=== PATIENT | male | born 1985 | race Caucasian/White ===

== ENCOUNTER 2017-03-29 16:35 | Inpatient (IN) | payer OTHER, SELFPAY ==
--- NOTE | 2017-03-29 18:31 | C.PDOC ---
History Of Present Illness 32 y/o male with past medical history of schizophrenia, not currently on any medications, and c/o feeling agitated, reports he is seeing things. Patient states when he gets agitated, he feels like he wants to hurt himself. Denies suicidal ideation. Also states when he gets like this, he gets palpitations. Denies fever, chills, chest pain, SOB, nausea, vomiting, or other associated symptoms. Time Seen by Provider: 03/29/17 17:47 Chief Complaint (Nursing): Psychiatric Evaluation History Per: Patient History/Exam Limitations: no limitations Current Symptoms Are (Timing): Still Present Suicide/Self Injury Attempted (Context): None Associated Symptoms: Agitation. denies: Suicidal Thoughts Recent travel outside of the [place]: No Past Medical History Reviewed: Historical Data, Nursing Documentation, Vital Signs Vital Signs: Last Vital Signs Temp 98.4 F 03/29/17 19:53 Pulse 77 03/29/17 19:53 Resp 18 03/29/17 19:53 BP 138/83 03/29/17 19:53 Pulse Ox 95 03/29/17 20:15 - Medical History PMH: Anxiety, Bipolar Disorder, Depression, Hypercholesterolemia, Schizophrenia - [facility] Procedures OTHER GROUP THERAPY (11/05/13) Family History: States: Unknown Family Hx - Social History Hx Tobacco Use: No Hx Alcohol Use: No Hx Substance Use: No - Immunization History Hx Tetanus Toxoid Vaccination: No Hx Influenza Vaccination: No Hx Pneumococcal Vaccination: No Review Of Systems Except As Marked, All Systems Reviewed And Found Negative. Constitutional: Negative for: Fever, Chills Cardiovascular: Negative for: Chest Pain Respiratory: Negative for: Cough, Shortness of Breath, Wheezing Gastrointestinal: Negative for: Vomiting Skin: Negative for: Rash Neurological: Negative for: Headache, Dizziness Physical Exam - Physical Exam Appears: Non-toxic, No Acute Distress Skin: Normal Color, Warm, Dry Head: Atraumatic, Normacephalic Oral Mucosa: Moist Chest: Symmetrical Cardiovascular: Rhythm Regular Respiratory: Normal Breath Sounds, No Rales, No Rhonchi, No Wheezing Gastrointestinal/Abdominal: Normal Exam, Soft, No Tenderness, No Guarding, No Rebound Back: Normal Inspection Extremity: Normal ROM, Capillary Refill (< 2 sec.) Neurological/Psych: Oriented x3, Normal Speech, Normal Cognition ED Course And Treatment - Laboratory Results Result Diagrams: 03/29/17 19:36 03/29/17 19:36 Lab Interpretation: No Acute Changes ECG: Interpreted By Me ECG Rhythm: Sinus Rhythm ECG Interpretation: No Acute Changes O2 Sat by Pulse Oximetry: 95 (RA) Pulse Ox Interpretation: Normal Progress Note: EKG, bloodwork ordered. Crisis eval. Reevaluation Time: 20:15 Reassessment Condition: Unchanged (Patient is medically cleared for psychiatric admission.) Disposition - Disposition Disposition: HOSPITALIZED Disposition Time: 21:18 Condition: STABLE - POA Present On Arrival: None - Clinical Impression Clinical Impression: Schizophrenia - Scribe Statement The provider has reviewed the documentation as recorded by the Scribe SM All medical record entries made by the Scribe were at my direction and personally dictated by me. I have reviewed the chart and agree that the record accurately reflects my personal performance of the history, physical exam, medical decision making, and the department course for this patient. I have also personally directed, reviewed, and agree with the discharge instructions and disposition.
[2017-03-29 19:39] LABS: BASO # 0.2 K/uL (0.0-0.2); BASO % 1.3 % (0.0-2.0); EOS % 7.8 % (0.0-4.0); LYMPH # 3.9 K/uL (1.0-4.3); LYMPH % 30.5 % (20.0-40.0); MEAN CELL VOLUME 83.9 fL (80.0-94.0); MEAN CORPUSCULAR HEMOGLOBIN 28.3 pg (27.0-31.0); MEAN CORPUSCULAR HGB CONC 33.7 g/dL (33.0-37.0); MEAN PLATELET VOLUME 7.6 fL (7.2-11.7); MONO # 0.7 K/uL (0.0-0.8); MONO % 5.4 % (0.0-10.0); RED CELL DISTRIBUTION WIDTH 14.1 % (11.5-14.5); WHITE BLOOD COUNT 12.9 K/uL (4.8-10.8)
[2017-03-29 19:47] LABS: RBC URINE 2 /hpf (0-3); URINE BACTERIA RARE (<OCC); URINE BILIRUBIN NEGATIVE (NEGATIVE); URINE BLOOD NEGATIVE (NEGATIVE); URINE COLOR Yellow (YELLOW); URINE GLUCOSE (UA) NORMAL (Normal); URINE KETONE TRACE mg/dL (NEGATIVE); URINE LEUKOCYTE ESTERASE NEG Leu/uL (Negative); URINE PROTEIN NEGATIVE (NEGATIVE); URINE UROBILINOGEN NORMAL mg/dL (0.2-1.0); WBC URINE 5 /hpf (0-5)
[2017-03-29 19:51] LABS: ALCOHOL SERUM < 10 mg/dl (0-10); ALKALINE PHOSPHATASE 90 U/L (38-126); ALT/SGPT 56 U/L (21-72); AST/SGOT 30 U/L (17-59); BILIRUBIN,TOTAL 0.4 mg/dL (0.2-1.3); BLOOD UREA NITROGEN 17 mg/dL (9-20); CALCIUM 8.8 mg/dl (8.6-10.4); CARBON DIOXIDE 25 mmol/L (22-30); CHLORIDE 102 mmol/L (98-107); GFR AFRICAN-AMERICAN > 60; GLUCOSE,RANDOM 93 mg/dL (75-110); SODIUM 139 mmol/L (132-148); TOTAL PROTEIN 8.8 g/dL (6.3-8.3)
--- NOTE | 2017-03-29 22:13 | PCM.BM ---
<Evette Rouse - Last Filed: 03/29/17 22:12> Treatment Plan Problems - Problems identified on initial assessmt Auditory Hallucinations Date Initiated: 03/29/17 Time Initiated: 22:12 Assessment reference: NA Status: Active Treatment assets and liabiliti Patient Assests: cooperative, self-reliant, ADL independent Patient Liabilities: live alone, financial problems - Milieu Protocol Maintain good personal hygiene: daily Encourage regular showers, daily Remind patient to perform daily oral care Conduct patient checks and document Observation sheet: Q15 minutes Maintain personal safety: every shift Educate patient to report safety concerns to staff, every shift Monitor environment for contraband/sharps Medication safety: Monitor for expected outcome, potential side effects: every shift, Assess barriers to learning: every shift, Assess readiness for medication education: every shift <Karlos Lyman - Last Filed: 03/31/17 10:25> - Diagnosis (1) Schizoaffective disorder, chronic condition with acute exacerbation Status: Acute Interventions: 03/31/17 10:25 * Assess/adjust medications daily and /or as needed * See patient on an individual basis 7x/week to assess status of hallucinations * Discuss risks, benefits, side effects and alternatives of medications * <Brooke Becerra - Last Filed: 03/31/17 11:26> Family Contact Family involvement: Family/SO is involved Family contact: Patient declines to allow family contact at present - Goals for Treatment Patient goals for treatment: "I want to feel better." Discharge/Continuing Care - Education Needs Education Needs: Patient Medication, Patient Coping Skills - Discharge Discharge Criteria: Tolerates medication w/o severe side effects, Reduction of target symptoms Discharge to:: Home - Treatment Team Participation Discussed with Family/SO: No Was Patient/Family/SO present at Treatment Team Meeting: Yes
--- NOTE | 2017-03-30 09:41 | PCM.PSYCH ---
Initial Psychiatric Evaluation - Initial Psychiatric Evaluation Type of Admission: Voluntary Legal Status: Capacity Chief Complaint (in patient's own words): "I'm tired" History of Present Illness and Precipitating Events: The pt is seen, chart reviewed, case discussed with staff Pt is a 32 y/o male with a history schizophrenia presents to the ED for anxiety and "racing thoughts." As per ED notes, Patient reported "seeing people on the street and in my brain seeing them again and again". Patient reported current symptoms for the past 2 weeks. Patient was unable to identify any precipitating factors at the time of interview. Patient stated 'I can't control my mind or relax. Patient reported compliance with current medications. Patient is prescribed Depakote 500 mg, Prozac 40mg and 20 mg, Ambien 10mg, Clonazepam and Olanzepine 10mg. Patient reported previous diagnosis of Schizophrenia. Patient reported history of mental illness in the maternal family of origin. Patient denied any history of alcohol or substance abuse in the maternal or paternal family of origin. Pt reports that he lives with his in an apartment in [place]. 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 Pt appears disorganized and disheveled. Pt reports that he does have visual hallucinations. Pt reports of feeling depressed and appeared paranoid. Pt stated that he did not sleep. Pt reports that his appetite is normal. Pt reports that he smokes 5 to 6 cigarettes a week. Pt denies alcohol and illicit drug use. Pt has a flat affect and soft speech pattern. Pt was observed to be pacing the hallways. Throughout the interview the pt occasionally repeated that the "problema es psicologia." Past MHX: Cholesterol Family Psych: denies Family Substance Abuse: denies Current Medications: Active Medications Generic Name Dose Route Start Last Admin Trade Name Freq PRN Reason Stop Dose Admin Benztropine Mesylate 1 mg 03/30/17 10:00 Cogentin PO BID CORBY Home Med 5 mg 03/30/17 10:00 Olanzapine [Olanzapine Odt] PO BID CORBY Hydroxyzine HCl 50 mg 03/29/17 22:42 03/29/17 22:49 Atarax PO 50 mg Q6H PRN Administration Anxiety Trazodone HCl 100 mg 03/29/17 22:45 03/29/17 22:49 Desyrel PO 100 mg HS CORBY Administration Past Psychiatric History - Past Psychiatric History Previous Treatment History: Inpatient Pertinent Medical Hx (Current Medical&Sleep Prob, Allergies): Allergies Allergy/AdvReac Type Severity Reaction Status Date / Time No Known Allergies Allergy Verified 04/07/14 10:17 Clonazepam [Klonopin] 1 mg PO DAILY 03/29/17 Divalproex [Depakote ER] 500 mg PO BID 03/29/17 Olanzapine [Olanzapine Odt] 10 mg PO DAILY 03/29/17 Zolpidem [Ambien] 10 mg PO DAILY 03/29/17 Review of Systems - Review of Systems All systems: reviewed and no additional remarkable complaints except - Psychiatric Psychiatric: Abnormal Sleep Pattern, Behavioral Changes, Depression, Difficulty Concentrating, Hopelessness, Paranoia, Visual Hallucinations Mental Status Examination - Personal Presentation Personal Presentation: Looks stated age - Affect Affect: Flat - Motor Activity Motor Activity: Calm - Reliability in Providing Information Reliability in Providing Information: Poor, due to alteration in thoughts - Speech Speech: Disorganized - Mood Mood: Depressed, Anxious - Formal Thought Process Formal Thought Process: Hallucinations, Delusions, Paranoia, Loosening of associations, Flight of ideas, Circumstantial - Hallucinations/Delusions Hallucinations: Visual Delusions: Persecution - Obsessions/Compulsions Obsessions: No Compulsions: No - Cognitive Functions Orientation: Person, Place, Situation, Time Sensorium: Alert Attention/Concentration: Attentive Abstract Thinking: [place] Estimate of Intelligence: Below average Judgement: Imparied, as evidence by: Poor judgement, Imparied, as evidence by: Lack of insight into illness Memory: Remote intact, as evidenced by: Ability to recall historical events - Risk Risk: Diminished functioning DSM 5 DX - DSM 5 DSM 5 Diagnosis: Schizoaffective disorder bipolar type - Recommended/Plan of Treatment Treatment Recommendations and Plan of Treatment: Schizoaffective disorder bipolar type CBT Psychoeducation Supportive therapy, group therapy, individual therapy Olanzapine 5 g by mouth twice a day Cogentin 1 mg PO BID Trazodone 50 mg by mouth daily at bedtime - Smoking Cessation Smoking Cessation Initiated: No
[2017-03-30] MEDS ORDERED: OLANZAPINE 5 MG PO SCH (10:00)
--- NOTE | 2017-03-31 10:25 | PCM.PYCHPN ---
Psychiatric Progress Note - Psychiatric Progress Note Patient seen today, length of contact: 16 min Patient Chief Complaint: "I'm feeling little better" Problems Identified/Issues Discussed: Patient seen and evaluated, chart reviewed and discussed with the nurse. Patient remained disorganized and internally preoccupied. He still reports of seeing shadows. Patient still appears paranoid and delusional. He reports depressed and anxious mood and feelings of hopelessness and helplessness and at times racing of thoughts. Patient remained isolated, confined and withdrawn. He is taking medication and denies any side effects. Supportive therapy and psychoeducation were given. Medication Change: Yes (Increase olanzapine) Medical Record Reviewed: Yes Mental Status Examination - Cognitive Function Orientation: Person, Place, Situation, Time Memory: Intact Attention: Poor Concentration: Poor Association: Loose Fund of Knowledge: Poor - Mood Mood: Depressed, Anxious - Affect Affect: Flat - Speech Speech: Soft - Formal Thought Process Formal Thought Process: Hallucinations, Delusions, Paranoia - Suicidal Ideation Suicidal Ideation: No - Homicidal Ideation Homicidal Ideation: No Goal/Treatment Plan - Goal/Treatment Plan Need for Continued Stay: Severe depression anxiety, Severe functional impairment Progress Toward Problem(s) and Goals/Treatment Plan: Schizoaffective disorder bipolar type CBT Psychoeducation Supportive therapy, group therapy, individual therapy Olanzapine 5 mg by mouth daily Olanzapine 10 mg by mouth daily Cogentin 1 mg PO BID Trazodone 50 mg by mouth daily at bedtime
--- NOTE | 2017-04-01 09:27 | PCM.PYCHPN ---
Psychiatric Progress Note - Psychiatric Progress Note Patient seen today, length of contact: 15 min Patient Chief Complaint: "I'm feeling sad" Problems Identified/Issues Discussed: Patient seen and evaluated, chart reviewed and discussed with the nurse. Staff reports that pt still appears paranoid and delusional. He remained disorganized and internally preoccupied. He still reports of seeing shadows. He reports depressed and anxious mood and feelings of hopelessness and helplessness and at times racing of thoughts. Patient remained isolated, confined and withdrawn. He is taking medication and denies any side effects. He needs more time to stabilize. Supportive therapy and psychoeducation were given. Medication Change: Yes (start zoloft) Medical Record Reviewed: Yes Mental Status Examination - Cognitive Function Orientation: Person, Place, Situation, Time Memory: Intact Attention: Poor Concentration: Poor Association: Loose Fund of Knowledge: Poor - Mood Mood: Depressed, Anxious - Affect Affect: Flat - Formal Thought Process Formal Thought Process: Hallucinations, Delusions, Paranoia, Loosening of associations - Suicidal Ideation Suicidal Ideation: No - Homicidal Ideation Homicidal Ideation: No Goal/Treatment Plan - Goal/Treatment Plan Need for Continued Stay: Severe depression anxiety, Severe functional impairment Progress Toward Problem(s) and Goals/Treatment Plan: Schizoaffective disorder bipolar type CBT Psychoeducation Supportive therapy, group therapy, individual therapy Olanzapine 5 mg by mouth daily Olanzapine 10 mg by mouth daily Zoloft 25 mg PO Daily Cogentin 1 mg PO BID Trazodone 50 mg by mouth daily at bedtime - Smoking Cessation Smoking Cessation Initiated: No
--- NOTE | 2017-04-02 22:21 | PCM.PYCHPN ---
Psychiatric Progress Note - Psychiatric Progress Note Patient seen today, length of contact: 15 minute Patient Chief Complaint: My sleep is disturbed due to voices. Voices are less in intensity but they are still there. Problems Identified/Issues Discussed: Patient seen, chart reviewed, case discussed with the staff. Issues related to illness and treatment were discussed with the patient and staff. Reported compliant with treatment with no adverse effects. Reported his sleep is disturbed because of auditory hallucinations. Voices are less than before but still present. We will increase the dose of trazodone to 150 mg at bedtime. Aftercare discussed with the patient. Patient was awake, alert and oriented 3. Denied any delusions, auditory or visual hallucinations, suicidal ideations or homicidal ideations at the time of evaluation.. Medical Problems: None reported Diagnostic Results: Reviewed DSM 5 Symptoms Update: Improving with treatment Medication Change: No Medical Record Reviewed: Yes Mental Status Examination - Cognitive Function Orientation: Person, Place, Situation, Time Memory: Intact Attention: WNL Concentration: WNL Association: WN Fund of Knowledge: [facility] Decription of patient's judgement and insights: Fair - Mood Mood: Anxious - Affect Affect: Blunted - Speech Speech: Appropriate - Formal Thought Process Formal Thought Process: Hallucinations - Suicidal Ideation Suicidal Ideation: No - Homicidal Ideation Homicidal Ideation: No Goal/Treatment Plan - Goal/Treatment Plan Need for Continued Stay: Remain at risks for inpatient hospitalization, Discharge may exacerbated symptoms, Severe functional impairment Progress Toward Problem(s) and Goals/Treatment Plan: Patient education Supportive therapy Dose of trazodone increased to 150 mg Continue rest of the treatment as before Patient will go to [facility] ([facility] for follow-up care after discharge from the hospital. Estimated Date of D/C: 04/05/17 - Smoking Cessation Smoking Cessation Initiated: No
--- NOTE | 2017-04-03 02:57 | CARD ---
APPROVED REPORT EKG Measurement Heart [id number] <Conclusion> Normal sinus rhythm Possible Inferior infarct, age undetermined Abnormal ECG
[2017-04-03] MEDS: Divalproex 250 mg DR Tab PO SCH ×2 (09:49→17:17)
--- NOTE | 2017-04-03 11:09 | PCM.PYCHPN ---
Psychiatric Progress Note - Psychiatric Progress Note Patient seen today, length of contact: 15 minute Patient Chief Complaint: "I still have a racing mind" Problems Identified/Issues Discussed: Patient seen and evaluated, chart reviewed and discussed with the nurse. Pt appears flat with a soft speech pattern. He participates In groups. He reports that he is feeling better. Pt states that his mind is still racing and he is still pacing the hallways. Pt reports that he had minimal sleep last night. He reports that his appetite is good and he had breakfast. Pt reports that he has a little depression but denies feelings of hopelessness. Pt reports minimal feelings of anxiety. He denies feelings of paranoia. He denies auditory and visual hallucinations. Pt denies suicidal and homicidal ideations. He is taking medication and denies any side effects. He needs more time to stabilize. Supportive therapy and psychoeducation were given. Medication Change: No Medical Record Reviewed: Yes Mental Status Examination - Cognitive Function Orientation: Person, Place, Situation, Time Memory: Intact Attention: WNL Concentration: WNL Association: WNL Fund of Knowledge: WNL - Mood Mood: Anxious - Affect Affect: Blunted - Speech Speech: Appropriate - Formal Thought Process Formal Thought Process: Hallucinations - Suicidal Ideation Suicidal Ideation: No - Homicidal Ideation Homicidal Ideation: No Goal/Treatment Plan - Goal/Treatment Plan Need for Continued Stay: Remain at risks for inpatient hospitalization, Discharge may exacerbated symptoms, Severe functional impairment Progress Toward Problem(s) and Goals/Treatment Plan: Schizoaffective disorder bipolar type CBT Psychoeducation Supportive therapy, group therapy, individual therapy Olanzapine 5 mg by mouth daily Olanzapine 10 mg by mouth daily Zoloft 25 mg PO Daily Cogentin 1 mg PO BID Trazodone 50 mg by mouth daily at bedtime Estimated Date of D/C: 04/05/17
[2017-04-04 07:41] VITALS: RESP 20; TEMP 98.6; O2SAT 95
[2017-04-04] MEDS: Divalproex 250 mg DR Tab PO SCH ×2 (09:51→17:08)
--- NOTE | 2017-04-04 09:58 | PCM.PYCHPN ---
Psychiatric Progress Note - Psychiatric Progress Note Patient seen today, length of contact: 16 minute Patient Chief Complaint: "I'm feeling better doctor" Problems Identified/Issues Discussed: Patient seen and evaluated, chart reviewed and discussed with the nurse. Pt appears slightly disheveled. Pt stated that he does not like to participate in groups because of the language barrier. He reports that he is feeling better. Pt states that his mind is still racing and he is still pacing the hallways. Pt reports that he had 7 hours of sleep last night. He reports that his appetite is good and he had breakfast. Pt denies feelings of depression and hopelessness. Pt denies feelings of anxiety. He denies feelings of paranoia. He denies auditory hallucinations. Pt reports that he recently has visual hallucinations of "blood on the wall" occasionally. Pt denies suicidal and homicidal ideations. He is taking medication and denies any side effects. He needs more time to stabilize. Supportive therapy and psychoeducation were given. Medication Change: No Medical Record Reviewed: Yes Mental Status Examination - Cognitive Function Orientation: Person, Place, Situation, Time Memory: Intact Attention: WNL Concentration: WNL Association: WN Fund of Knowledge: WNL - Mood Mood: Other (appropriate ) - Affect Affect: Blunted - Speech Speech: Appropriate - Formal Thought Process Formal Thought Process: Hallucinations - Suicidal Ideation Suicidal Ideation: No - Homicidal Ideation Homicidal Ideation: No Goal/Treatment Plan - Goal/Treatment Plan Need for Continued Stay: Remain at risks for inpatient hospitalization, Discharge may exacerbated symptoms, Severe functional impairment Progress Toward Problem(s) and Goals/Treatment Plan: Schizoaffective disorder bipolar type CBT Psychoeducation Supportive therapy, group therapy, individual therapy Olanzapine 5 mg by mouth daily Olanzapine 10 mg by mouth daily Zoloft 25 mg PO Daily Cogentin 1 mg PO BID Trazodone 50 mg by mouth daily at bedtime Estimated Date of D/C: 04/05/17
[2017-04-04 15:56] VITALS: BP 113/63; PULSE 95
[2017-04-05] MEDS ORDERED: Divalproex 250 mg DR Tab PO SCH (10:00)
--- NOTE | 2017-04-05 10:41 | PCM.PYCHDC ---
Mental Status Examination - Mental Status Examination Orientation: Person, Place Memory: Intact Mood: Neutral Affect: Constricted Speech: Soft Attention: WNL Concentration: WNL Association: WNL Fund of Knowledge: WNL Formal Thought Process: No Impairment Description of patient's judgement and insight: good, fair Psychotic Thoughts and Behaviors: denies any AVH Suicidal Ideation: No Current Homicidal Ideation?: No Discharge Summary - Discharge Note Reason for Hospitalization: The pt is seen, chart reviewed, case discussed with staff Pt is a 32 y/o male with a history schizophrenia presents to the ED for anxiety and "racing thoughts." As per ED notes, Patient reported "seeing people on the street and in my brain seeing them again and again". Patient reported current symptoms for the past 2 weeks. Patient was unable to identify any precipitating factors at the time of interview. Patient stated 'I can't control my mind or relax. Patient reported compliance with current medications. Patient is prescribed Depakote 500 mg, Prozac 40mg and 20 mg, Ambien 10mg, Clonazepam and Olanzepine 10mg. Patient reported previous diagnosis of Schizophrenia. Patient reported history of mental illness in the maternal family of origin. Patient denied any history of alcohol or substance abuse in the maternal or paternal family of origin. Pt reports that he lives with his in an apartment in [place]. 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 Pt appears disorganized and disheveled. Pt reports that he does have visual hallucinations. Pt reports of feeling depressed and appeared paranoid. Pt stated that he did not sleep. Pt reports that his appetite is normal. Pt reports that he smokes 5 to 6 cigarettes a week. Pt denies alcohol and illicit drug use. Pt has a flat affect and soft speech pattern. Pt was observed to be pacing the hallways. Throughout the interview the pt occasionally repeated that the "problema es psicologia." Consultations:: List each consultation separately and include: 1. Reason for request. 2. Findings. 3. Follow-up Summary of Hospital Course include:: 1. Description of specific treatment plan utilized for patients during their course of treatmen. 2. Summarize the time- course for resolution of acute symptoms and/or regressed behaviors. 3. Describe issues identified and worked on during hospitalization. 4. Describe medication utilized. 5. Describe medical problems identified and treated. 6. Reassessment of suicide risk Summary of Hospital Course: During the course of his stay, patient (pt) started progressively improving and he no longer remained irritable, depressed, and psychotic. His mood and paranoia were improved and he started attending groups and meetings and started socializing. Patient denied any feelings of hopelessness, helplessness, and worthlessness, denied any problem with the sleep or appetite, denied suicidal ideation or homicidal ideation. Pt denied any auditory or visual hallucinations. Some changes were made in his current medications and patient was discharged on following medications. He tolerated these medications very well and denied any side effects. Pt is to return [facility]. - Diagnosis (1) Schizoaffective disorder, chronic condition with acute exacerbation Status: Acute - Final Diagnosis (DSM 5) Condition upon Discharge: STABLE DSM 5: Schizoaffective disorder bipolar type Disposition: HOME/ ROUTINE Follow-up Treatment Plan: Education: Pt was educated and counseled about the risks and benefits of taking and not taking medications. Pt was educated and counseled about the risks of drinking and abusing drugs. Pt was educated and counseled to go to the ER or call 911 if pt develop suicidal ideation or homicidal ideation, worsening of symptoms or severe side effects of the meds. Prescriptions/Medication Reconciliation: Benztropine [Cogentin] 1 mg PO BID #60 tab Divalproex [Depakote DR] 500 mg PO HS #30 tcp OLANZapine [Zyprexa] 10 mg PO BID #60 tab Sertraline [Zoloft] 25 mg PO DAILY #30 tab traZODone [Desyrel] 100 mg PO HS #60 tab - Smoking Cessation Smoking Cessation Medication prescribed: No - Antipsychotic Medications Pt discharged on 2 or more routine antipsychotic medications: No
[2017-04-05] MEDS ORDERED: Divalproex 500 mg DR Tab PO SCH (22:00)
== END 2017-04-05 11:45 | disposition home or self-care (01) | DRG 430 ==
LOC: C.ER 16:35 → C.5E 21:18
PROVIDERS: ADMIT Psychiatry & Neurology Psychiatry; ATTEND Psychiatry & Neurology Psychiatry
PROC: GZHZZZZ Group Psychotherapy (ICD-10-PCS; principal; 2017-03-29)
PROC: GZ56ZZZ Individual Psychotherapy, Supportive (ICD-10-PCS; 2017-03-29)
DX: F25.0 Schizoaffective disorder, bipolar type (principal); F22 Delusional disorders; F17.210 Nicotine dependence, cigarettes, uncomplicated; F41.9 Anxiety disorder, unspecified; Z79.899 Other long term (current) drug therapy

== ENCOUNTER 2018-01-18 20:03 | Inpatient (IN) | payer MEDICAID, OTHER ==
[2018-01-18 20:03] VITALS: BMI 44.9
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
[2018-01-18 20:37] LABS: BASO # 0.1 K/uL (0.0-0.2); BASO % 0.9 % (0.0-2.0); EOS # 0.9 K/uL (0.0-0.7); EOS % 8.3 % (0.0-4.0); HEMOGLOBIN 12.6 g/dL (12.0-18.0); LYMPH # 3.7 K/uL (1.0-4.3); LYMPH % 33.6 % (20.0-40.0); MEAN CELL VOLUME 82.9 fL (80.0-94.0); MEAN CORPUSCULAR HEMOGLOBIN 29.2 pg (27.0-31.0); MEAN CORPUSCULAR HGB CONC 35.2 g/dL (33.0-37.0); MEAN PLATELET VOLUME 7.8 fL (7.2-11.7); MONO # 0.6 K/uL (0.0-0.8); MONO % 5.1 % (0.0-10.0); NEUT # 5.7 K/uL (1.8-7.0); NEUT % 52.1 % (50.0-75.0); NRBC % 0.2 % (0.0-2.0); RBC 4.34 Mil/uL (4.40-5.90); RED CELL DISTRIBUTION WIDTH 14.5 % (11.5-14.5); WHITE BLOOD COUNT 10.9 K/uL (4.8-10.8)
[2018-01-18 20:42] LABS: SQUAMOUS EPITHIAL 1 /hpf (0-5); URINE BILIRUBIN NEGATIVE (NEGATIVE); URINE BLOOD NEGATIVE (NEGATIVE); URINE CLARITY Clear (Clear); URINE COLOR Yellow (YELLOW); URINE GLUCOSE (UA) NORMAL (Normal); URINE LEUKOCYTE ESTERASE NEG Leu/uL (Negative); URINE PROTEIN NEGATIVE (NEGATIVE); URINE UROBILINOGEN NORMAL mg/dL (0.2-1.0)
[2018-01-18 20:49] LABS: ALB/GLOB RATIO 1.4 (1.0-2.1); ALT/SGPT 31 U/L (21-72); AST/SGOT 17 U/L (17-59); BLOOD UREA NITROGEN 13 mg/dL (9-20); CALCIUM 9.2 mg/dl (8.6-10.4); GFR NON-AFRICAN AMERICAN > 60
[2018-01-18 20:57] LABS: BARBITURATES, UR NEGATIVE (NEGATIVE); BENZODIAZEPINES, UR NEGATIVE (NEGATIVE); OPIATES, UR NEGATIVE (NEGATIVE); PHENCYCLIDINE, UR NEGATIVE (NEGATIVE)
--- NOTE | 2018-01-19 00:10 | PCM.BM ---
<Flavio Delgadillo - Last Filed: 01/19/18 00:10> Treatment Plan Problems - Problems identified on initial assessmt ANXIETY Date Initiated: 01/18/18 Time Initiated: 23:35 Assessment reference: NA Status: Active VISUAL/ AUDITORY HALLUCINATION Date Initiated: 01/18/18 Time Initiated: 23:35 Assessment reference: NA Status: Active Treatment assets and liabiliti Patient Assests: cooperative, resourceful, self-reliant, ADL independent, negotiates basic needs Patient Liabilities: financial problems, poor support system, relationship conflicts, dietary restrictions, medical problems, language/speech - Milieu Protocol Maintain good personal hygiene: daily Encourage regular showers, daily Remind patient to perform daily oral care, daily Assist patient to perform ADL's Maintain personal safety: every shift Educate patient to report safety concerns to staff, every shift Monitor environment for contraband/sharps Medication safety: Monitor for expected outcome, potential side effects: every shift, Assess barriers to learning: every shift, Assess readiness for medication education: every shift <Karlos Lyman - Last Filed: 01/22/18 11:28> - Diagnosis (1) Schizoaffective disorder Status: Acute Interventions: 01/22/18 11:29 * Assess/adjust medications daily and /or as needed * See patient on an individual basis 7x/week to assess status of hallucinations * Discuss risks, benefits, side effects and alternatives of medications * <Brooke Becerra - Last Filed: 01/22/18 13:30> Family Contact Family involvement: Famliy/SO not involved - Goals for Treatment Patient goals for treatment: "I want a new outpatient program." Discharge/Continuing Care - Education Needs Education Needs: Patient Medication, Patient Coping Skills, Patient Placement options, Patient Community resources - Discharge Discharge Criteria: Tolerates medication w/o severe side effects, Reduction of target symptoms Discharge to:: Home - Treatment Team Participation Discussed with Family/SO: No Was Patient/Family/SO present at Treatment Team Meeting: Yes
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
[2018-01-20] MEDS ORDERED: Pneumococcal 23-Valent Vaccine IM ONE (10:00)
[2018-01-20] MEDS ORDERED: Influenza Vaccine 60 MCG/0.5 ML SYR (3 yr & up) IM ONE (10:30)
--- NOTE | 2018-01-21 21:31 | PCM.PYCHPN ---
Psychiatric Progress Note - Psychiatric Progress Note Patient seen today, length of contact: 15 minutes Patient Chief Complaint: I am feeling better but still have sleeping problem. I do not hear any voices but see something at times. Problems Identified/Issues Discussed: Patient seen, chart reviewed, case discussed with the staff. Issues related to illness and treatment were discussed with the patient and staff. Reported compliant with treatment with no adverse affects. Tolerating treatment very well. Patient reported feeling little better with the treatment. Calm and cooperative. Awake, alert and oriented 3. No psychomotor activity, good eye contact, memory intact. Aftercare discussed with the patient. Denied any delusions, auditory or visual hallucinations, suicidal ideations or homicidal ideations at the time of evaluation. Diagnostic Results: Reviewed DSM 5 Symptoms Update: Improving with treatment Medication Change: No Medical Record Reviewed: Yes Mental Status Examination - Cognitive Function Orientation: Person, Place, Situation, Time Memory: Intact Attention: WNL Concentration: WNL Association: WNL Fund of Knowledge: [facility] Decription of patient's judgement and insights: Fair - Mood Mood: Depressed (Less than before) - Affect Affect: Depressed - Speech Speech: Appropriate - Formal Thought Process Formal Thought Process: Paranoia - Suicidal Ideation Suicidal Ideation: No - Homicidal Ideation Homicidal Ideation: No Goal/Treatment Plan - Goal/Treatment Plan Need for Continued Stay: Remain at risks for inpatient hospitalization, Discharge may exacerbated symptoms, Severe functional impairment Progress Toward Problem(s) and Goals/Treatment Plan: Patient education. Supportive therapy. Continue treatment as before. Estimated Date of D/C: 01/24/18
--- NOTE | 2018-01-22 11:28 | PCM.PYCHPN ---
Psychiatric Progress Note - Psychiatric Progress Note Patient seen today, length of contact: 16 min Patient Chief Complaint: "I still see people" Problems Identified/Issues Discussed: The patient is seen, chart reviewed, case discussed with staff. Patient states that he feels good now but he still complains about visual hallucinations at nights. He reports feeling irritable and not being able to sleep in the last two nights. The patient is compliant with medications and reports no side-effects. Symptoms are improving but needs more time to stabilize. Patient attends groups and activities. Support given, psycho-education provided. After care discussed. Medication Change: Yes Medical Record Reviewed: Yes Mental Status Examination - Cognitive Function Orientation: Person, Place, Situation, Time Memory: Intact Attention: WNL Concentration: Poor Association: Loose Fund of Knowledge: Poor - Mood Mood: Depressed, Anxious - Affect Affect: Constricted, Depressed - Speech Speech: Soft - Formal Thought Process Formal Thought Process: Hallucinations, Delusions, Paranoia, Loosening of associations - Suicidal Ideation Suicidal Ideation: No - Homicidal Ideation Homicidal Ideation: No Goal/Treatment Plan - Goal/Treatment Plan Need for Continued Stay: Severe depression anxiety, Severe functional impairment Progress Toward Problem(s) and Goals/Treatment Plan: Schizophrenia paranoid type continuous -CBT -Psychotherapy -supportive therapy, group therapy, individual therapy -Atarax 25 mg PO Q6 prn -Klonopin 0.5 mg O BID -Cogentin 1 mg PO BID -Prolixin 10 mg PO BID -Trazodone 150 mg PO QHS prn
[2018-01-23] MEDS: Divalproex 250 mg DR Tab PO SCH ×2 (09:52→17:40)
--- NOTE | 2018-01-23 10:19 | PCM.PYCHPN ---
Psychiatric Progress Note - Psychiatric Progress Note Patient seen today, length of contact: 16 min Patient Chief Complaint: "I still see people" Problems Identified/Issues Discussed: The patient is seen, chart reviewed, case discussed with staff. Patient states that he feels good now but he still complains about visual hallucinations at nights. He still appears more organized and internally preoccupied. He reports feeling irritable and not being able to sleep in the last two nights. The patient is compliant with medications and reports no side-effects. Symptoms are improving but needs more time to stabilize. Patient attends groups and activities. Support given, psycho-education provided. After care discussed. Medication Change: Yes Medical Record Reviewed: Yes Mental Status Examination - Cognitive Function Orientation: Person, Place, Situation, Time Memory: Intact Attention: WNL Concentration: Poor Association: Loose Fund of Knowledge: Poor - Mood Mood: Depressed, Anxious - Affect Affect: Constricted, Depressed - Speech Speech: Soft - Formal Thought Process Formal Thought Process: Hallucinations, Delusions, Paranoia, Loosening of associations - Suicidal Ideation Suicidal Ideation: No - Homicidal Ideation Homicidal Ideation: No Goal/Treatment Plan - Goal/Treatment Plan Need for Continued Stay: Severe depression anxiety, Severe functional impairment Progress Toward Problem(s) and Goals/Treatment Plan: Schizophrenia paranoid type continuous -CBT -Psychotherapy -supportive therapy, group therapy, individual therapy -Atarax 25 mg PO Q6 prn -Klonopin 0.5 mg O BID -Cogentin 1 mg PO BID -Prolixin 10 mg PO BID -Trazodone 150 mg PO QHS prn
[2018-01-24] MEDS: Divalproex 250 mg DR Tab PO SCH ×2 (09:01→17:04)
[2018-01-24] MEDS ORDERED: Bacitracin Ointment 30 GM TUBE TOP PRN (13:25)
--- NOTE | 2018-01-25 00:30 | PCM.PYCHPN ---
Psychiatric Progress Note - Psychiatric Progress Note Patient seen today, length of contact: 16 min Patient Chief Complaint: "I still see people" Problems Identified/Issues Discussed: The patient is seen, chart reviewed, case discussed with staff. Patient states that he feels good now but he still complains about visual hallucinations at nights. He reports feeling irritable and not being able to sleep in the last two nights. He still appears more organized and internally preoccupied. The patient is compliant with medications and reports no side-effects. Symptoms are improving but needs more time to stabilize. Patient attends groups and activities. Support given, psycho-education provided. After care discussed. Medication Change: Yes Medical Record Reviewed: Yes Mental Status Examination - Cognitive Function Orientation: Person, Place, Situation, Time Memory: Intact Attention: WNL Concentration: Poor Association: Loose Fund of Knowledge: Poor - Mood Mood: Depressed, Anxious - Affect Affect: Constricted, Depressed - Speech Speech: Soft - Formal Thought Process Formal Thought Process: Hallucinations, Delusions, Paranoia, Loosening of associations - Suicidal Ideation Suicidal Ideation: No - Homicidal Ideation Homicidal Ideation: No Goal/Treatment Plan - Goal/Treatment Plan Need for Continued Stay: Severe depression anxiety, Severe functional impairment Progress Toward Problem(s) and Goals/Treatment Plan: Schizophrenia paranoid type continuous -CBT -Psychotherapy -supportive therapy, group therapy, individual therapy -Atarax 25 mg PO Q6 prn -Klonopin 0.5 mg O BID -Cogentin 1 mg PO BID -Prolixin 10 mg PO BID -Trazodone 150 mg PO QHS prn
[2018-01-25 07:00] VITALS: O2SAT 98
[2018-01-25] MEDS: Divalproex 250 mg DR Tab PO SCH ×2 (10:43→17:53)
--- NOTE | 2018-01-25 10:51 | PCM.PYCHPN ---
Psychiatric Progress Note - Psychiatric Progress Note Patient seen today, length of contact: 16 min Patient Chief Complaint: "I still see people" Problems Identified/Issues Discussed: Patient seen and evaluated, chart reviewed and discussed with the nurse. Pt reports depressed mood, and he remained disorganized and internally preoccupied. He remained isolated and withdrawn, and confined to his room. Patient states that he feels little better but he still complains about visual hallucinations at nights. He reports feeling irritable and not being able to sleep in the last two nights. The patient is compliant with medications and reports no side-effects. Symptoms are improving but needs more time to stabilize. Patient attends groups and activities. Support given, psycho-education provided. After care discussed. Medication Change: Yes Medical Record Reviewed: Yes Mental Status Examination - Cognitive Function Orientation: Person, Place, Situation, Time Memory: Intact Attention: WNL Concentration: Poor Association: Loose Fund of Knowledge: Poor - Mood Mood: Depressed, Anxious - Affect Affect: Constricted, Depressed - Speech Speech: Soft - Formal Thought Process Formal Thought Process: Hallucinations, Delusions, Paranoia, Loosening of associations - Suicidal Ideation Suicidal Ideation: No - Homicidal Ideation Homicidal Ideation: No Goal/Treatment Plan - Goal/Treatment Plan Need for Continued Stay: Severe depression anxiety, Severe functional impairment Progress Toward Problem(s) and Goals/Treatment Plan: Schizophrenia paranoid type continuous -CBT -Psychotherapy -supportive therapy, group therapy, individual therapy -Atarax for anxiety -Klonopin for anxiety -Cogentin for side effects -Prolixin for psychosis -Trazodone for sleep -Depakote for mood - Smoking Cessation Smoking Cessation Initiated: No
[2018-01-26] MEDS: Divalproex 250 mg DR Tab PO SCH ×2 (09:05→17:23)
--- NOTE | 2018-01-26 10:13 | PCM.PYCHPN ---
Psychiatric Progress Note - Psychiatric Progress Note Patient seen today, length of contact: 16 min Patient Chief Complaint: "I still see people" Problems Identified/Issues Discussed: Patient seen and evaluated, chart reviewed and discussed with the nurse. Pt reports improvement in the depressed mood, and he reports improvement in the paranoia. He remained isolated and withdrawn, and confined to his room. Patient states that he feels little better but he still complains of anxiety. He reports feeling irritable and not being able to sleep in the last two nights. The patient is compliant with medications and reports no side-effects. Symptoms are improving but needs more time to stabilize. Support given, psycho-education provided. After care discussed. Medication Change: Yes Medical Record Reviewed: Yes Mental Status Examination - Cognitive Function Orientation: Person, Place, Situation, Time Memory: Intact Attention: WNL Concentration: Poor Association: Loose Fund of Knowledge: Poor - Mood Mood: Depressed, Anxious - Affect Affect: Constricted, Depressed - Speech Speech: Soft - Formal Thought Process Formal Thought Process: Hallucinations, Delusions, Paranoia, Loosening of associations - Suicidal Ideation Suicidal Ideation: No - Homicidal Ideation Homicidal Ideation: No Goal/Treatment Plan - Goal/Treatment Plan Need for Continued Stay: Severe depression anxiety, Severe functional impairment Progress Toward Problem(s) and Goals/Treatment Plan: Schizophrenia paranoid type continuous -CBT -Psychotherapy -supportive therapy, group therapy, individual therapy -Atarax for anxiety -Klonopin for anxiety -Cogentin for side effects -Prolixin for psychosis -Trazodone for sleep -Depakote for mood
[2018-01-27] MEDS: Divalproex 250 mg DR Tab PO SCH ×2 (09:01→17:20)
[2018-01-28] MEDS: Divalproex 250 mg DR Tab PO SCH ×2 (09:22→17:05)
[2018-01-29 06:49] VITALS: BP 110/72; PULSE 82; RESP 20; TEMP 98.4
[2018-01-29] MEDS: Divalproex 250 mg DR Tab PO SCH (09:52)
--- NOTE | 2018-01-29 10:01 | PCM.BM ---
Treatment Plan Problems - Problems identified on initial assessmt ANXIETY Date Initiated: 01/18/18 Time Initiated: 23:35 Assessment reference: NA Status: Active VISUAL/ AUDITORY HALLUCINATION Date Initiated: 01/18/18 Time Initiated: 23:35 Assessment reference: NA Status: Active Treatment assets and liabiliti Patient Assests: cooperative, resourceful, self-reliant, ADL independent, negotiates basic needs Patient Liabilities: financial problems, poor support system, relationship conflicts, dietary restrictions, medical problems, language/speech - Milieu Protocol Maintain good personal hygiene: daily Encourage regular showers, daily Remind patient to perform daily oral care, daily Assist patient to perform ADL's Maintain personal safety: every shift Educate patient to report safety concerns to staff, every shift Monitor environment for contraband/sharps Medication safety: Monitor for expected outcome, potential side effects: every shift, Assess barriers to learning: every shift, Assess readiness for medication education: every shift Milieu Narrative: Patient education. Supportive therapy. Continue treatment as before. Family Contact Family involvement: Famliy/SO not involved - Goals for Treatment Patient goals for treatment: "I want a new outpatient program." Discharge/Continuing Care - Education Needs Education Needs: Patient Medication, Patient Coping Skills, Patient Placement options, Patient Community resources - Discharge Discharge Criteria: Tolerates medication w/o severe side effects, Reduction of target symptoms Discharge to:: Home - Treatment Team Participation Patient/Family/SO Statement: Patient education. Supportive therapy. Continue treatment as before. Discussed with Family/SO: No Was Patient/Family/SO present at Treatment Team Meeting: Yes Treatment Plan Review - Problem ANXIETY Date Initiated: 01/29/18 Time Initiated: 11:00 Progress toward outcomes: improved VISUAL/ AUDITORY HALLUCINATION Date Initiated: 01/29/18 Time Initiated: 11:00 Progress toward outcomes: resolved - Discharge / Continuing Care Discharge to:: Home Behavioral Health Services: Outpatient therapy Health Needs: Medications/Rx, Alcohol/Drug treatment
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
--- NOTE | 2018-01-30 00:43 | PCM.PYCHPN ---
Psychiatric Progress Note - Psychiatric Progress Note Patient seen today, length of contact: 16 min Patient Chief Complaint: "I m feeling better" Problems Identified/Issues Discussed: Patient seen and evaluated, chart reviewed and discussed with the nurse. Pt reports improvement in the depressed mood, and he reports improvement in the paranoia. He remained isolated and withdrawn, and confined to his room. Patient states that he feels little better but he still complains of anxiety. He reports feeling irritable and not being able to sleep in the last two nights. The patient is compliant with medications and reports no side-effects. Symptoms are improving but needs more time to stabilize. Support given, psycho-education provided. After care discussed. Medication Change: Yes Medical Record Reviewed: Yes Mental Status Examination - Cognitive Function Orientation: Person, Place, Situation, Time Memory: Intact Attention: WNL Concentration: WNL Association: WNL Fund of Knowledge: Poor - Mood Mood: Depressed, Anxious - Affect Affect: Constricted, Depressed - Speech Speech: Soft - Formal Thought Process Formal Thought Process: Paranoia, Loosening of associations - Suicidal Ideation Suicidal Ideation: No - Homicidal Ideation Homicidal Ideation: No Goal/Treatment Plan - Goal/Treatment Plan Need for Continued Stay: Severe depression anxiety, Severe functional impairment Progress Toward Problem(s) and Goals/Treatment Plan: Schizophrenia paranoid type continuous -CBT -Psychotherapy -supportive therapy, group therapy, individual therapy -Atarax for anxiety -Klonopin for anxiety -Cogentin for side effects -Prolixin for psychosis -Trazodone for sleep -Depakote for mood Estimated Date of D/C: 02/03/18
== END 2018-01-29 12:38 | disposition home or self-care (01) | DRG 885 ==
LOC: C.ER 20:03 → C.5E 22:23
PROVIDERS: ADMIT Psychiatry & Neurology Psychiatry; ATTEND Psychiatry & Neurology Psychiatry
DX: F20.0 Paranoid schizophrenia (principal); R45.851 Suicidal ideations; F32.9 Major depressive disorder, single episode, unspecified; E78.00 Pure hypercholesterolemia, unspecified; I10 Essential (primary) hypertension; Z56.0 Unemployment, unspecified; Z63.9 Problem related to primary support group, unspecified; Z91.5 Personal history of self-harm

== ENCOUNTER 2018-02-25 16:09 | Emergency (ER) | payer MEDICAID, OTHER ==
[2018-02-25 16:10] VITALS: BMI 44.9
[2018-02-25 16:30] VITALS: BP 152/102; PULSE 68; RESP 18; TEMP 99.2; O2SAT 94
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
[2018-02-25 18:20] LABS: BASO # 0.1 K/uL (0.0-0.2); BASO % 1.1 % (0.0-2.0); EOS # 0.6 K/uL (0.0-0.7); EOS % 5.2 % (0.0-4.0); HEMOGLOBIN 14.2 g/dL (12.0-18.0); LYMPH # 3.5 K/uL (1.0-4.3); LYMPH % 30.2 % (20.0-40.0); MEAN CELL VOLUME 83.4 fL (80.0-94.0); MEAN CORPUSCULAR HEMOGLOBIN 28.5 pg (27.0-31.0); MEAN CORPUSCULAR HGB CONC 34.2 g/dL (33.0-37.0); MEAN PLATELET VOLUME 8.1 fL (7.2-11.7); MONO # 0.7 K/uL (0.0-0.8); MONO % 5.9 % (0.0-10.0); NEUT # 6.7 K/uL (1.8-7.0); NEUT % 57.6 % (50.0-75.0); NRBC % 0.1 % (0.0-2.0); RBC 4.99 Mil/uL (4.40-5.90); RED CELL DISTRIBUTION WIDTH 14.1 % (11.5-14.5); WHITE BLOOD COUNT 11.6 K/uL (4.8-10.8)
[2018-02-25 18:36] LABS: SQUAMOUS EPITHIAL < 1 /hpf (0-5); URINE BILIRUBIN NEGATIVE (NEGATIVE); URINE BLOOD 1+ (NEGATIVE); URINE CLARITY Clear (Clear); URINE COLOR Straw (YELLOW); URINE GLUCOSE (UA) NORMAL (Normal); URINE LEUKOCYTE ESTERASE NEG Leu/uL (Negative); URINE PROTEIN NEGATIVE (NEGATIVE); URINE UROBILINOGEN NORMAL mg/dL (0.2-1.0)
[2018-02-25 18:38] LABS: ALB/GLOB RATIO 1.4 (1.0-2.1); ALBUMIN 4.8 g/dL (3.5-5.0); ALT/SGPT 27 U/L (21-72); AST/SGOT 21 U/L (17-59); BLOOD UREA NITROGEN 12 mg/dL (9-20); GFR NON-AFRICAN AMERICAN > 60
[2018-02-25 18:45] LABS: BARBITURATES, UR NEGATIVE (NEGATIVE); BENZODIAZEPINES, UR NEGATIVE (NEGATIVE); OPIATES, UR NEGATIVE (NEGATIVE); PHENCYCLIDINE, UR NEGATIVE (NEGATIVE)
== END 2018-02-25 19:44 | disposition home or self-care (01) ==
LOC: C.ER 16:09
DX: F25.0 Schizoaffective disorder, bipolar type (principal)

== ENCOUNTER 2018-04-19 14:44 | Emergency (ER) | payer SELFPAY ==
[2018-04-19 14:45] VITALS: BMI 44.9
[2018-04-19 15:09] VITALS: BP 92/55; PULSE 86; RESP 20; TEMP 99; O2SAT 96
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
[2018-04-19 16:24] LABS: BASO # 0.1 K/uL (0.0-0.2); EOS # 0.5 K/uL (0.0-0.7); EOS % 3.7 % (0.0-4.0); LYMPH # 4.5 K/uL (1.0-4.3); LYMPH % 31.4 % (20.0-40.0); MEAN CELL VOLUME 84.3 fL (80.0-94.0); MEAN CORPUSCULAR HEMOGLOBIN 28.2 pg (27.0-31.0); MEAN CORPUSCULAR HGB CONC 33.5 g/dL (33.0-37.0); MEAN PLATELET VOLUME 7.9 fL (7.2-11.7); MONO # 0.8 K/uL (0.0-0.8); MONO % 5.8 % (0.0-10.0); NEUT # 8.3 K/uL (1.8-7.0); NEUT % 58.1 % (50.0-75.0); RBC 4.97 Mil/uL (4.40-5.90); RED CELL DISTRIBUTION WIDTH 13.8 % (11.5-14.5); WHITE BLOOD COUNT 14.3 K/uL (4.8-10.8)
[2018-04-19 16:38] LABS: ALB/GLOB RATIO 1.5 (1.0-2.1); ALBUMIN 4.7 g/dL (3.5-5.0); ALT/SGPT 50 U/L (21-72); AST/SGOT 42 U/L (17-59); BLOOD UREA NITROGEN 14 mg/dL (9-20); CALCIUM 10.2 mg/dl (8.6-10.4); GFR NON-AFRICAN AMERICAN > 60
[2018-04-19 16:55] LABS: SQUAMOUS EPITHIAL 2 /hpf (0-5); URINE BACTERIA RARE (<OCC); URINE BILIRUBIN NEGATIVE (NEGATIVE); URINE BLOOD NEGATIVE (NEGATIVE); URINE CLARITY Clear (Clear); URINE COLOR Yellow (YELLOW); URINE GLUCOSE (UA) NORMAL (Normal); URINE LEUKOCYTE ESTERASE NEG Leu/uL (Negative); URINE PROTEIN NEGATIVE (NEGATIVE); URINE UROBILINOGEN NORMAL mg/dL (0.2-1.0)
[2018-04-19 17:08] LABS: BARBITURATES, UR NEGATIVE (NEGATIVE); BENZODIAZEPINES, UR NEGATIVE (NEGATIVE); OPIATES, UR NEGATIVE (NEGATIVE); PHENCYCLIDINE, UR NEGATIVE (NEGATIVE)
== END 2018-04-19 17:14 | disposition home or self-care (01) ==
LOC: C.ER 14:44
DX: F25.9 Schizoaffective disorder, unspecified (principal); E78.00 Pure hypercholesterolemia, unspecified; I10 Essential (primary) hypertension; E78.5 Hyperlipidemia, unspecified
CPT/HCPCS: 80053; 81001; 83735; 84100; 85025; 99284; G0480

== ENCOUNTER 2018-04-24 12:08 | Emergency (ER) | payer OTHER ==
[2018-04-24 12:08] VITALS: BMI 44.9
[2018-04-24 12:24] VITALS: RESP 20; TEMP 99.4
--- NOTE | 2018-04-24 12:57 | RAD ---
HISTORY: chest pain COMPARISON: Chest x-ray performed 06/12/13 TECHNIQUE: Chest, one view. FINDINGS: Examination limited by habitus and hypoinflation. LUNGS: No focal consolidation. Please note that chest x-ray has limited sensitivity for the detection of pulmonary masses. PLEURA: No significant pleural effusion identified. No definite pneumothorax . CARDIOVASCULAR: Heart size appears within normal limits. Ectatic aorta. OSSEOUS STRUCTURES: Degenerative changes. VISUALIZED UPPER ABDOMEN: Unremarkable. OTHER FINDINGS: None. IMPRESSION: No focal consolidation.
[2018-04-24 13:15] LABS: BASO # 0.2 K/uL (0.0-0.2); BASO % 1.2 % (0.0-2.0); EOS # 0.3 K/uL (0.0-0.7); EOS % 2.1 % (0.0-4.0); HEMOGLOBIN 14.2 g/dL (12.0-18.0); LYMPH # 2.5 K/uL (1.0-4.3); LYMPH % 18.7 % (20.0-40.0); MEAN CELL VOLUME 84.2 fL (80.0-94.0); MEAN CORPUSCULAR HEMOGLOBIN 28.7 pg (27.0-31.0); MEAN CORPUSCULAR HGB CONC 34.1 g/dL (33.0-37.0); MEAN PLATELET VOLUME 7.9 fL (7.2-11.7); MONO # 0.6 K/uL (0.0-0.8); MONO % 4.2 % (0.0-10.0); NEUT # 9.7 K/uL (1.8-7.0); NEUT % 73.8 % (50.0-75.0); RBC 4.96 Mil/uL (4.40-5.90); RED CELL DISTRIBUTION WIDTH 14.1 % (11.5-14.5); WHITE BLOOD COUNT 13.2 K/uL (4.8-10.8)
[2018-04-24 13:31] LABS: ALB/GLOB RATIO 1.5 (1.0-2.1); ALBUMIN 4.9 g/dL (3.5-5.0); ALT/SGPT 43 U/L (21-72); AST/SGOT 27 U/L (17-59); BLOOD UREA NITROGEN 12 mg/dL (9-20); CALCIUM 9.3 mg/dl (8.6-10.4); GFR NON-AFRICAN AMERICAN > 60
[2018-04-24 13:37] LABS: BARBITURATES, UR NEGATIVE (NEGATIVE); BENZODIAZEPINES, UR NEGATIVE (NEGATIVE); OPIATES, UR NEGATIVE (NEGATIVE); PHENCYCLIDINE, UR NEGATIVE (NEGATIVE)
[2018-04-24 15:00] VITALS: BP 137/86; PULSE 91; O2SAT 96
[2018-04-24 15:46] LABS: SQUAMOUS EPITHIAL < 1 /hpf (0-5); URINE BILIRUBIN NEGATIVE (NEGATIVE); URINE BLOOD NEGATIVE (NEGATIVE); URINE CLARITY Clear (Clear); URINE COLOR Yellow (YELLOW); URINE GLUCOSE (UA) NORMAL (Normal); URINE LEUKOCYTE ESTERASE NEG Leu/uL (Negative); URINE PROTEIN NEGATIVE (NEGATIVE); URINE UROBILINOGEN NORMAL mg/dL (0.2-1.0)
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
--- NOTE | 2018-04-25 18:21 | CARD ---
APPROVED REPORT Date of service: 04/24/2018 EKG Measurement Heart [id number] <Conclusion> Normal sinus rhythm Minimal voltage criteria for LVH, may be normal variant Borderline ECG
== END 2018-04-24 16:01 | disposition home or self-care (01) ==
LOC: C.ER 12:08
DX: F20.9 Schizophrenia, unspecified (principal); E78.00 Pure hypercholesterolemia, unspecified; I10 Essential (primary) hypertension; E78.5 Hyperlipidemia, unspecified

== ENCOUNTER 2018-05-04 03:55 | Emergency (ER) | payer OTHER ==
[2018-05-04 03:55] VITALS: BMI 44.9
[2018-05-04 04:51] LABS: HEMOGLOBIN 13.5 g/dL (12.0-18.0); MEAN CELL VOLUME 84.4 fL (80.0-94.0); MEAN CORPUSCULAR HEMOGLOBIN 28.1 pg (27.0-31.0); MEAN CORPUSCULAR HGB CONC 33.3 g/dL (33.0-37.0); MEAN PLATELET VOLUME 7.9 fL (7.2-11.7); PLATELET COUNT 322 K/uL (130-400); RBC 4.81 Mil/uL (4.40-5.90); RED CELL DISTRIBUTION WIDTH 13.8 % (11.5-14.5)
[2018-05-04 04:58] LABS: SQUAMOUS EPITHIAL < 1 /hpf (0-5); URINE BILIRUBIN NEGATIVE (NEGATIVE); URINE BLOOD NEGATIVE (NEGATIVE); URINE CLARITY Clear (Clear); URINE COLOR Yellow (YELLOW); URINE GLUCOSE (UA) NORMAL (Normal); URINE LEUKOCYTE ESTERASE NEG Leu/uL (Negative); URINE PROTEIN NEGATIVE (NEGATIVE); URINE UROBILINOGEN NORMAL mg/dL (0.2-1.0)
[2018-05-04 05:07] LABS: ALB/GLOB RATIO 1.5 (1.0-2.1); ALBUMIN 4.7 g/dL (3.5-5.0); ALT/SGPT 46 U/L (21-72); AST/SGOT 29 U/L (17-59); BLOOD UREA NITROGEN 13 mg/dL (9-20); CALCIUM 8.5 mg/dl (8.6-10.4); GFR NON-AFRICAN AMERICAN > 60
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
[2018-05-04 05:13] LABS: BARBITURATES, UR NEGATIVE (NEGATIVE); BENZODIAZEPINES, UR NEGATIVE (NEGATIVE); OPIATES, UR NEGATIVE (NEGATIVE); PHENCYCLIDINE, UR NEGATIVE (NEGATIVE)
[2018-05-04 08:48] LABS: LYMPHOCYTE 11 % (20-40); MONOCYTE 5 % (0-10); NEUTROPHIL 84 % (50-75); PLATELET ESTIMATE NORMAL (NORMAL); TOTAL CELLS COUNTED 100
--- NOTE | 2018-05-04 09:48 | RAD ---
Date of service: 05/04/2018 HISTORY: Admission COMPARISON: 04/24/2018. TECHNIQUE: Chest PA and lateral FINDINGS: LINES AND TUBES: None. LUNG AND PLEURA: The lungs are well inflated and clear. No pleural effusion or pneumothorax. HEART AND MEDIASTINUM: The heart is not enlarged. No aortic atherosclerotic calcifications present. The hilar and mediastinal contours are within normal limits. SKELETAL STRUCTURES: The bony structures are within normal limits for the patient's age. VISUALIZED UPPER ABDOMEN: Normal. OTHER FINDINGS: None. IMPRESSION: No active pulmonary disease.
[2018-05-04 12:02] VITALS: BP 114/80; PULSE 81; RESP 20; TEMP 99.2; O2SAT 98
--- NOTE | 2018-05-05 10:21 | CARD ---
APPROVED REPORT Date of service: 05/04/2018 EKG Measurement Heart [id number] <Conclusion> Undetermined rhythm Otherwise normal ECG
== END 2018-05-04 12:07 | disposition short-term general hospital (02) ==
LOC: C.ER 03:55
DX: F25.9 Schizoaffective disorder, unspecified (principal); F31.9 Bipolar disorder, unspecified; I10 Essential (primary) hypertension; E78.00 Pure hypercholesterolemia, unspecified; F43.10 Post-traumatic stress disorder, unspecified; F17.210 Nicotine dependence, cigarettes, uncomplicated

== ENCOUNTER 2018-06-09 05:15 | Emergency (ER) | payer MEDICAID, OTHER ==
[2018-06-09 05:16] VITALS: BMI 41.9
[2018-06-09 05:31] VITALS: BP 134/87; PULSE 80; RESP 14; TEMP 97.3; O2SAT 99
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
== END 2018-06-09 06:49 | disposition left against medical advice (07) ==
LOC: C.ER 05:15
DX: F20.9 Schizophrenia, unspecified (principal); E78.00 Pure hypercholesterolemia, unspecified; I10 Essential (primary) hypertension